=== PATIENT | female | born 1980 | race Caucasian/White ===

== ENCOUNTER 2017-05-14 19:45 | Emergency (ER) | payer SELFPAY ==
[~2017-05-14] VITALS: Ht 167.6 cm; Wt 63.6 kg
[~2017-05-14 19:45] MED LIST: ADVAIR IH; CEPHALEXIN500 M1 PO; DHA; NOVOLOG FLEX100 U/ML SC; PRENATAL VITAMI1 TAB PO; WELLBUTRIN 75MG75 MG PO; ZOLOFT 100MG100 MG PO
[2017-05-14] MEDS ORDERED: SOMA 350MG350 MG/TAB PO (20:02)
[2017-05-14] MEDS ORDERED: VALIUM 5MG T5 MG/TAB PO (20:02)
[2017-05-14 20:16] VITALS: BP 138/90; TEMP 97.9
[2017-05-14 20:35] LABS: BASO # 0.1 (0.0-0.2); EOS # 0.2 (0.0-0.7); GRAN # 4.8 (1.4-6.5); GRAN % 54.4 % (42.2-75.2); HEMATOCRIT 45.5 % (37.0-47.0); HEMOGLOBIN 15.5 g/dl (12.5-16.0); LYMPH # 3.2 (1.2-3.4); LYMPH % 36.1 % (20.0-51.0); MEAN CELL VOLUME 95 fl (80.0-100.0); MEAN CORPUSCULAR HEMOGLOBIN 32 pg (27.0-31.0); MEAN CORPUSCULAR HGB CONC 34 g/dl (33.0-37.0); MEAN PLATELET VOLUME 8.7 fl (7.4-10.4); MONO # 0.6 (0.1-0.6); MONO % 6.4 % (1.7-9.3); PLATELET COUNT 260 K/mm3 (130-400); RED BLOOD COUNT 4.81 M/mm3 (4.10-5.30); REDCELL DISTRIBUTION WIDTH-CV 12.9 % (11.5-14.5); WHITE BLOOD COUNT 8.8 K/mm3 (4.8-10.8)
[2017-05-14 20:56] LABS: PH 8 (5-8); URINE APPEARANCE Hazy; URINE BILIRUBIN Negative (NEGATIVE); URINE BLOOD Negative (NEGATIVE); URINE COLOR Straw; URINE GLUCOSE Negative (NEGATIVE); URINE KETONE Negative (NEGATIVE); URINE UROBILINOGEN Negative (NEGATIVE)
[2017-05-14 20:57] LABS: SQUAMOUS EPITHELIAL 20-50 /hpf; URINE RBC 0-2 /hpf; URINE WBC 0-2 /hpf
[2017-05-14 20:58] LABS: ACETAMINOPHEN < 10 ug/mL (10-30); ANION GAP 16 mmol/L (7-16); BLOOD UREA NITROGEN 11 mg/dL (7-17); CALCIUM 8.7 mg/dL (8.4-10.2); CARBON DIOXIDE 25 mmol/L (22-30); CHLORIDE 106 mmol/L (98-107); CREATININE, serum 0.95 mg/dL (0.52-1.25); GLUCOSE 111 mg/dL (74-106); SALICYLATE < 1.0 mg/dL; SODIUM 148 mmol/L (137-145)
[2017-05-14 21:04] LABS: AMPHETAMINE URINE NEGATIVE; BARBITURATES URINE NEGATIVE; BENZODIAZEPINES URINE POSITIVE; BUPRENORPHINE URINE NEGATIVE; METHADONE URINE NEGATIVE; OPIATES URINE NEGATIVE; OXYCODONE URINE NEGATIVE; PHENCYCLIDINE URINE NEGATIVE; PROPOXYPHENE URINE NEGATIVE; THC CANNABINOIDS URINE NEGATIVE
[2017-05-14 22:55] VITALS: PULSE 111
== END 2017-05-14 22:56 | disposition home or self-care (01) ==
LOC: COL.ER 19:45
PROVIDERS: Emergency Medicine
DX: F32.9 Major depressive disorder, single episode, unspecified (principal); F43.10 Post-traumatic stress disorder, unspecified; X58.XXXA Exposure to other specified factors, initial encounter; F10.120 Alcohol abuse with intoxication, uncomplicated; Y90.8 Blood alcohol level of 240 mg/100 ml or more

== ENCOUNTER 2021-02-12 18:53 | Emergency (ER) | payer MEDICAID ==
[~2021-02-12] VITALS: Ht 167.6 cm; Wt 52.3 kg
[~2021-02-12 18:53] MED LIST changes: +SOMA 350MG350 MG/TAB PO; +VALIUM 5MG T5 MG/TAB PO
[2021-02-12 19:17] VITALS: TEMP 98.1
[2021-02-12 20:13] LABS: BASO # 0.1 (0.0-0.2); BASO % 0.7 % (0.0-2.0); EOS # 0.1 (0.0-0.7); EOS % 0.8 % (0-4.0); GRAN # 6.5 (1.4-6.5); GRAN % 77.2 % (42.2-75.2); HEMATOCRIT 48.4 % (37.0-47.0); HEMOGLOBIN 16.1 g/dl (12.5-16.0); LYMPH # 1.3 (1.2-3.4); LYMPH % 15.4 % (20.0-51.0); MEAN CELL VOLUME 97 fl (80.0-100.0); MEAN CORPUSCULAR HEMOGLOBIN 32 pg (27.0-31.0); MEAN CORPUSCULAR HGB CONC 33 g/dl (33.0-37.0); MEAN PLATELET VOLUME 8.9 fl (7.4-10.4); MONO # 0.5 (0.1-0.6); MONO % 5.8 % (1.7-9.3); PLATELET COUNT 266 K/mm3 (130-400); RED BLOOD COUNT 5.01 M/mm3 (4.10-5.30); REDCELL DISTRIBUTION WIDTH-CV 13.2 % (11.5-14.5)
[2021-02-12 20:23] LABS: ALANINE AMINOTRANSFERASE 20 U/L (4-34); ALBUMIN 5.1 gm/dL (3.5-5.0); ALCOHOL(ethanol),MEDICAL < 10 mg/dL; ALKALINE PHOSPHATASE 93 U/L (50-136); ANION GAP 15 mmol/L (7-16); AST,SGOT 55 U/L (15-37); BILIRUBIN,TOTAL 1.7 mg/dL (0.0-1.0); BLOOD UREA NITROGEN 10 mg/dL (7-17); CALCIUM 10.2 mg/dL (8.4-10.2); CARBON DIOXIDE 26 mmol/L (22-30); CHLORIDE 95 mmol/L (98-107); CREATININE, serum 0.79 (0.52-1.25); GLUCOSE 113 mg/dL (74-106); LIPASE 231 U/L (23-300); SODIUM 135 mmol/L (137-145)
[2021-02-12 21:27] LABS: COLLECTION METHOD CLEAN CATCH
[2021-02-12 21:38] LABS: MUCOUS Present /lpf; PH 6 (5-8); SQUAMOUS EPITHELIAL 0-2 /hpf; URINE APPEARANCE Clear; URINE BACTERIA None Seen /hpf; URINE BILIRUBIN Negative (NEGATIVE); URINE BLOOD Negative (NEGATIVE); URINE COLOR Yellow; URINE GLUCOSE Negative (NEGATIVE); URINE KETONE 2+ (NEGATIVE); URINE LEUKOCYTE ESTERASE Negative (NEGATIVE); URINE NITRATE Negative (NEGATIVE); URINE PROTEIN(semi-quant) 2+ (NEGATIVE); URINE RBC 0-2 /hpf
[2021-02-12 22:06] LABS: TRICYCLIC ANTIDEPRESS URINE NEGATIVE
[2021-02-12] MEDS ORDERED: ZOFRAN ODT4 MG PO (22:21)
[2021-02-12 22:30] VITALS: BP 145/98; PULSE 62
== END 2021-02-12 22:38 | disposition home or self-care (01) ==
LOC: COL.ER 18:53
PROVIDERS: Physician Assistant
DX: R11.2 Nausea with vomiting, unspecified (principal); F41.9 Anxiety disorder, unspecified; G89.29 Other chronic pain; Z87.891 Personal history of nicotine dependence; Z20.822 Contact with and (suspected) exposure to COVID-19
CPT/HCPCS: C9113; J2405; J7030

== ENCOUNTER 2023-09-23 12:54 | Observation (INO) | payer MEDICAID ==
[~2023-09-23] VITALS: Ht 167.6 cm; Wt 58.3 kg
[~2023-09-23 12:54] MED LIST changes: +ZOFRAN ODT4 MG PO
[2023-09-23 13:12] LABS: COLLECTION METHOD CATHETER
[2023-09-23 13:16] LABS: BASO # 0.1 K/mm3 (0.0-0.2); BASO % 1.2 % (0.0-2.0); EOS # 0.1 K/mm3 (0.0-0.7); EOS % 1.4 % (0.0-4.0); GRAN # 5.2 K/mm3 (1.4-6.5); HEMATOCRIT 44.8 % (37.0-47.0); HEMOGLOBIN 14.9 g/dl (12.5-16.0); LYMPH # 2.6 K/mm3 (1.2-3.4); LYMPH % 30.8 % (20.0-51.0); MEAN CELL VOLUME 98 fl (80.0-100.0); MEAN CORPUSCULAR HEMOGLOBIN 33 pg (27-31); MEAN CORPUSCULAR HGB CONC 33 g/dl (33.0-37.0); MEAN PLATELET VOLUME 8.5 fl (7.4-10.4); MONO # 0.6 K/mm3 (0.1-0.6); MONO % 6.5 % (1.7-9.3); PLATELET COUNT 410 K/mm3 (130-400); RED BLOOD COUNT 4.58 M/mm3 (4.10-5.30); REDCELL DISTRIBUTION WIDTH-CV 12.9 % (11.5-14.5)
[2023-09-23 13:37] LABS: ALANINE AMINOTRANSFERASE 12 U/L (0-55); ALBUMIN 3.9 gm/dL (3.5-5.0); ALKALINE PHOSPHATASE 59 U/L (40-150); ANION GAP 20 mmol/L (7-16); AST,SGOT 33 U/L (5-34); BILIRUBIN,TOTAL 0.3 mg/dL (0.2-1.2); BLOOD UREA NITROGEN 7 mg/dL (7-19); CALCIUM 8.4 mg/dL (8.4-10.2); CARBON DIOXIDE 15 mmol/L (22-29); CHLORIDE 106 mmol/L (98-107); CREATININE, serum 0.86 mg/dL (0.57-1.11); GLUCOSE 206 mg/dL (70-99); LIPASE 76 U/L (8-78); POTASSIUM 3.3 mmol/L (3.5-4.5); SODIUM 141 mmol/L (136-145); TOTAL PROTEIN 7.6 gm/dL (6.2-8.1)
[2023-09-23 13:40] LABS: ACETAMINOPHEN < 1.0 ug/mL (10-30); SALICYLATE < 5.0 mg/dL (15.0-30.0)
[2023-09-23 13:42] LABS: ALCOHOL(ethanol),MEDICAL 587 mg/dL (0-10)
[2023-09-23 13:43] LABS: MUCOUS Present (NOT PRESENT); PH 5.5 (5.0-8.5); TROPONIN-I < 0.010 ng/mL (0.00-0.033); URINE APPEARANCE Cloudy (CLEAR/HAZY); URINE BLOOD 1+ (NEGATIVE); URINE COLOR Yellow (YELLOW); URINE GLUCOSE Negative (NEGATIVE); URINE KETONE Negative (NEGATIVE); URINE NITRATE Negative (NEGATIVE); URINE PROTEIN(semi-quant) 3+ (NEGATIVE); URINE UROBILINOGEN 0.2 E.U/dL (0.2-1.0)
[2023-09-23 13:44] LABS: URINE RBC 0-2 /hpf (0-2); URINE WBC 0-2 /hpf (0-2)
[2023-09-23 13:46] LABS: TRICYCLIC ANTIDEPRESS URINE NEGATIVE
[2023-09-24] VITALS (12 sets, daily range): BP systolic 130–176; BP diastolic 94–117; PULSE 68–90; TEMP 98.1–98.5
[2023-09-24 05:32] LABS: CALCIUM 8.9 mg/dL (8.4-10.2); CREATININE, serum 0.81 mg/dL (0.57-1.11)
--- NOTE | 2023-09-24 08:15 | NUR ---
THIS RN GREATED PATIENRT ON ARRIVAL WITH ED STAFF. VITAL SIGNS OBTAINED. ASSIGNED RN NOTIFIED.
[2023-09-24] MEDS ORDERED: NEURONTIN800 MG/TAB PO (08:43)
[2023-09-24] MEDS ORDERED: AMBIEN CR 12.12.5 MG PO (08:44)
[2023-09-24] MEDS ORDERED: BUSPAR10 MG PO (08:45)
[2023-09-24] MEDS ORDERED: PRISTIQ100 MG PO (08:48)
--- NOTE | 2023-09-24 09:03 | NUR ---
Patient admitted to unit around 0830. Patient alert and oriented x4, complains of pain to sternum. Patient required sternum rub yesterday due to unresponsiveness. Sternum is light red and tender to touch. Bruise noted to left side of back, yellow/greenish in color. Patient cannot recall why this bruise is there. Patient has had two episodes of emesis, states it is due to morphine received in ER. PRN Zofran administered. Gait is steady. Mild anxiety and tremors noted. BP 150s/90s. Education provided on alcohol withdrawal symptoms. CIWA score of 6 at 0800. Med rec complete, patient reports not taking medications due to needing refill. Dr. Rico updated on patient condition. Patient interested in social work consult regarding rehabilitation options. States she only drinks alcohol a couple of times a month, but when she drinks it is excessive liquor. Patient in bed with call light in reach, all needs met at this time.
--- NOTE | 2023-09-24 10:45 | NUR ---
One time dose of Toradol administered per orders, patient states it was effective. Pain decreased from 6/10 to 2. 1000 CIWA score 1, patient states she feels less anxious. Nausea continues, but has decreased. No more emesis noted. BP decreased to 130s/90s. Patient resting in bed with call light in reach, all needs met at this time.
--- NOTE | 2023-09-24 12:33 | NUR ---
Patient states pain to sternum increased to 7/10. PRN Ibuprofen available, patient educated on risk of stomach ulcer/upset and reminded that they received Toradol around 3hr prior to ibuprofen. Patient states she understands and that she still wants the PRN Ibuprofen. Pudding given to patient to take with medication. Milk offered and refused. Patient does not want lunch at this time due to nausea. No further emesis noted. Patient states she cannot take Tylenol due to her liver. CIWA score at 1200 a 2. Patient resting in bed with call light in reach, all needs met at this time.
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
--- NOTE | 2023-09-24 17:33 | NUR ---
Patient continues to be nauseous, PRN Zofran administered for a second time. CIWA score at 1600 a 4. BP elevated in 160s, HR 80s. Tremor noticed with anxiety, but is not constant. Patient was anxious and expressed concern with heart attack possibility due to BP. Patient educated on BP elevation in response to alcohol detox. Dr. Rico updated on patient condition and states to monitor VS closely at this time, if HR elevates in addition to BP then ativan can be ordered. Patient informed and verbalized understanding. Attempted to eat soup and crackers, but too nausous. No emesis noted. Complains of dull headache. NS infusing per orders through LAC IV. Patient resting in bed with call light in reach, all needs met at this time.
--- NOTE | 2023-09-24 18:25 | NUR ---
Patient states nausea feels resolved, but headache continues. Wants to attempt to eat full meal, dinner tray ordered. SBP slightly decreased to 150s, HR 70s, CIWA at 1800 a 3. No tremors noted. Patient currently resting in bed with call light in reach, all needs met at this time.
[2023-09-25] VITALS (10 sets, daily range): BP systolic 139–176; BP diastolic 83–96; PULSE 71–92; TEMP 98–99.6
--- NOTE | 2023-09-25 11:33 | NUR ---
LATE ENTRY. PT RESTING COMFORTABLY IN BED, EVERY 2 HOURS CIWA MONITORED, PT REPORTS SOME NAUSEA, WELL A HEADACHE. FLU SHOT GIVEN PER PT'S REQUEST. PT IS ALERT AND ORIENTED, LUNG SOUNDS CLEAR, PT HAS NO NEW REQUESTS AT THIS TIME
[2023-09-25] MEDS ORDERED: FOLIC ACID 11 MG/TA1 PO (12:37)
[2023-09-25] MEDS ORDERED: MULTI VITAMINS1 TAB PO (12:38)
[2023-09-25] MEDS ORDERED: NATURE'S BLEND100 M2 PO (12:38)
[2023-09-25] MEDS ORDERED: ZOFRAN 4MG T4 MG/TAB PO (12:39)
== END 2023-09-25 15:30 | disposition home or self-care (01) ==
LOC: COL.ER 12:54 → EDBD 12:54 → COL.ER 12:54 → MEDICAL 09-24 07:44
PROVIDERS: Emergency Medicine; ADMIT Internal Medicine
DX: F10.129 Alcohol abuse with intoxication, unspecified (principal); Y90.8 Blood alcohol level of 240 mg/100 ml or more; F41.8 Other specified anxiety disorders; F32.A Depression, unspecified; R07.89 Other chest pain; R74.02 Elevation of levels of lactic acid dehydrogenase [LDH]; M50.30 Other cervical disc degeneration, unspecified cervical region; Z87.891 Personal history of nicotine dependence; Z79.899 Other long term (current) drug therapy
CPT/HCPCS: G0008; G0378; J0360; J1885; J2270; J2310; J2405; J2543; J3370; J3411; J7030; J7050

== ENCOUNTER → 2024-05-17 | Outpatient (CLI) | payer MEDICAID ==
[2005-03-24 08:51] VITALS: TEMP 98.6
[~2024-05-17] MED LIST changes: +AMBIEN CR 12.12.5 MG PO; +BUSPAR10 MG PO; +FOLIC ACID 11 MG/TA1 PO; +MULTI VITAMINS1 TAB PO; +NATURE'S BLEND100 M2 PO; +NEURONTIN800 MG/TAB PO; +PRISTIQ100 MG PO; +ZOFRAN 4MG T4 MG/TAB PO
== END ==
LOC: MC.RAD 08:48
DX: Z12.31 Encounter for screening mammogram for malignant neoplasm of breast (principal)